=== PATIENT | female | born 1985 ===

== ENCOUNTER 2019-04-20 07:44 | Inpatient (IN) ==
[2019-04-20] MEDS: LACTATED RINGER'S 1,000 ML IV PRN ×4 (08:28→23:06)
[2019-04-20] MEDS ORDERED: OXYTOCIN 30 UNITS/500 ML BAG IV PRN (09:22)
--- NOTE | 2019-04-20 09:27 | Obstetrical Progress Note ---
Date of Service Patient had cervical P[place] last night heart rate is reactive baseline is 150s on cervix check today cervical internal losses at most 1 to 2 cm it is thic k -3 we will start Pitocin and estimated weight is 7 to 8 pounds group B strep negative April 20, 2019 Results & Data Vital Signs (Past 12 Hours) Vital Signs Temp Pulse Resp BP 04/20/19 09:00 83 112/58 L 04/20/19 08:45 36.5 C 83 20 112/58 L 04/20/19 08:21 37.2 C 20
--- NOTE | 2019-04-20 09:38 | History & Physical Report ---
Date of Service April 20, 2019 Assessment & Plan (1) History of stillbirth: close monitoring of mother and vital signs. (2) 40 weeks gestation of : Monitor vitals and labor status of mom. [temp of 37.2 at arrival, now 36.5] Frequent checks of heart monitor. Adjust pain plan with patient as labor progresses, consider epidural. History of Present Illness Primary Care Provider: with hx of full term demise/still at 40 weeks, currently 40 weeks confirmed via ultrasound on 10/20/18. Here for induction of labor for post-term . no complications with this . Has been attending OB appointments regularly. Currently taking iron and supplements. Contractions: none. Fluid or Blood loss: none. had de placed last night to advance cervical dilation, de fell out at 2:30 am. Movement: active Labs Blood type: O- Antibody screen: negative H.0 (02/01/19) Hct: 33.3 Wbc: -- Plt: 206 (10/20/18) Rubella: Immune VDRL/RPR: nonreactive Gonorrhea: negative Chlamydia: negative HIV: negative HBsAg: negative GBS: negative Glucose tolerance x2: negative x 2 Allergies Allergy/AdvReac Type Severity Reaction Status Date / Time No Known Allergies Allergy Unverified 04/19/19 19:44 Home Medications Home Medications Medication Instructions Recorded Confirmed Type ferrous sulfate 325 mg PO DAILY 04/19/19 04/20/19 History vit no.123-[id number] 1 tab PO DAILY 04/19/19 04/20/19 History [ Vitamin] Patient History Social History Preferred Language: Swahili Communication Ability: Effective 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 Feels it was due to hospital care. 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 >2 years ago in [facility] Review of Systems + fatigue; no fever and no chills no cough, no dyspnea and no wheezing + edema; no chest pain and no calf pain + abdominal pain; no nausea, no vomiting, no cramping, no constipation and no diarrhea/loose stools no dysuria and no difficulty urinating + back pain Physical Exam Constitutional: well developed and well nourished Respiratory: normal respiratory effort; no respiratory distress, no labored breathing and no cough Auscultation: no diminished lung sounds, no crackles, no rales, no rhonchi and no wheezes Cardiovascular: Rate/Rhythm: regular rate Heart Sounds: + murmur (2/6 systolic murmur that doesn't increase with valsalva maneuver) Extremities: normal capillary refill and + pedal edema; no calf tenderness Gastrointestinal (Abdomen): Inspection/Auscultation: + abdomen distended and normal bowel sounds Percussion/Palpation: abdomen nontender and no guarding Genitourinary: Speculum/Bimanual Exam: + uterus enlarged OB Exam Abdomen: + fundal height Fundus: + firm and + relation to umbilicus (high above umbilicus); not tender Cervical Exam per OB: Dilation - 1-2 cm Effacement - 50% Station - -2 Results & Data Vital Signs (Past 12 Hours) Vital Signs Temp Pulse Resp BP 04/20/19 09:00 83 112/58 L 04/20/19 08:45 36.5 C 83 20 112/58 L 04/20/19 08:21 37.2 C 20 Monitoring External Monitor Heart Monitor: Elevated baseline HR at 170 and flat appearing strip at initial presentation. Improved appearance after bolus of LR showing Moderate Variability, Accelerations, No Decels, baseline HR of 150. Tocodynamometer Contraction Frequency: not currently rekha. Starting pitocin drip to augment contractions Supervising Physician Co-Signing Physician Notes Resident Physician Supervision Note: I was present with [Name of resident] during the history and exam. I discussed the case with the resident and agree with the findings and plan as documented in the note. Any exceptions or clarifications are listed here: [None] Documented By: Jose Heredia MD, FACOG
[2019-04-20 09:56] LABS: Hematocrit (blood only) 34.5 % (37-47); Hemoglobin 11.4 g/dL (12.0-16.0); Mean Corpuscular Volume 86.9 fL (80-100); Mean Platelet Volume 10.5 fL (7.4-10.4); Platelet Count 142 K/uL (130-400); RDW Coefficient of Variation 16.5 % (11.5-14.5); RDW Standard Deviation 52.4 fL (36.4-46.3); Red Blood Count 3.97 M/uL (4.2-5.4); White Blood Count 11.53 K/uL (4.8-10.8)
[2019-04-20] MEDS: OXYTOCIN 30 UNITS/500 ML BAG IV PRN (10:01)
--- NOTE | 2019-04-20 14:17 | Obstetrical Progress Note ---
Date of Service Patient becoming more uncomfortable on Pitocin cervix is 2 cm I did confirm again with ultrasound of the baby is vertex in position as it is a high location of the heart rate monitoring externally. Offered the patient AROM she wishes epidural first and then will perform AROM heart rate category 1 April 20, 2019 Results & Data Vital Signs (Past 12 Hours) Vital Signs Temp Pulse Resp BP 04/20/19 13:20 72 20 111/72 04/20/19 12:21 36.7 C 80 16 110/55 L 04/20/19 11:04 36.7 C 79 20 107/56 L 04/20/19 10:51 79 110/55 L 04/20/19 10:35 85 115/60 04/20/19 10:20 71 125/69 04/20/19 10:04 80 16 114/59 L 04/20/19 09:00 83 112/58 L 04/20/19 08:45 36.5 C 83 20 112/58 L 04/20/19 08:21 37.2 C 20
[2019-04-20] MEDS ORDERED: BUPIVACAINE 0.25% 30 ML VIAL ONE (14:20)
[2019-04-20] MEDS ORDERED: fentaNYL citrate 100 MCG/2 ML VIAL ONE (14:21)
[2019-04-20] MEDS ORDERED: ePHEDrine sulfate 50 MG/ML AMP ONE (14:21)
[2019-04-20] MEDS ORDERED: fentaNYL 2MCG/ML ROPIV 1.25MG/ML 100 ML BAG EPI ONE (14:22)
--- NOTE | 2019-04-20 14:30 | Anesthesiology Consultation ---
Date of Service April 20, 2019 Assessment & Plan (1) Encounter for pre-operative examination: Chart Review Chart Review: Acceptable Risk for Labor Epidural History Height/Weight Height: 5 ft 3 in Weight: 89.074 kg Allergies Allergy/AdvReac Type Severity Reaction Status Date / Time No Known Allergies Allergy Unverified 04/19/19 19:44 Medications Home Medications Medication Instructions Recorded Confirmed Last Taken ferrous sulfate 325 mg PO DAILY 04/19/19 04/20/19 04/18/19 20:00 vit no.108-[id number] 1 tab PO DAILY 04/19/19 04/20/19 04/19/19 22:30 [ Vitamin] Active Medications Generic Name Dose Route Start Last Admin Trade Name Freq PRN Reason Stop Dose Admin Lactated Ringer's 1,000 mls @ 125 mls/hr 04/20/19 09:22 04/20/19 14:15 Lr IV 04/22/19 09:21 999 mls/hr .Q8H PRN Infusion L&D Protocol Protocol Oxytocin 30 units in 500 mls @ 17 mls/hr 04/20/19 09:39 04/20/19 14:10 Pitocin IV 04/22/19 09:38 1.02 units/hr .Q24H PRN 17 mls/hr Labor Induction/Augmentation Titration Protocol 1.02 UNITS/HR Past Medical History Medical History Anemia affecting Social History Smoking Status: Never smoker Do You Dip or Chew Tobacco: No Hx Alcohol Use: No Hx Substance Use: No substance use type: does not use Physical Exam Vital Signs Last Vital Signs Temp 36.7 C 04/20/19 12:21 Pulse 73 04/20/19 14:20 Resp 20 04/20/19 13:20 BP 94/58 L 04/20/19 14:20 Testing Laboratory Results 04/20/19 09:37
[2019-04-20] MEDS ORDERED: NALOXONE HCL 1 MG in SODIUM CHLORIDE 0.9% 1000ML 1,000 ML IV PRN (15:01)
[2019-04-20] MEDS ORDERED: NALOXONE HCL 0.4 MG/1 ML VIAL/CARP IV PRN (15:01)
[2019-04-20] MEDS ORDERED: ONDANSETRON INJ 2 MG/ML 2 ML VIAL IV PRN (15:01)
[2019-04-20] MEDS ORDERED: ePHEDrine sulfate 50 MG/ML AMP IV PRN (15:01)
[2019-04-20] MEDS ORDERED: Nursing to Pharmacy Communication ONE ×2 (18:57→20:10)
--- NOTE | 2019-04-20 21:15 | Obstetrical Progress Note ---
Date of Service Patient being induced at 39+ weeks for prior stillbirth in her prior she has made slow progress she is 4 cm 50% -2 station Pitocin is at 25 milliunit s we are prepared to go up to 28 milliunits her contraction pattern is not optimal at this stage so we are continuing to raise the Pitocin heart rate is category 1 April 20, 2019 Results & Data Vital Signs (Past 12 Hours) Vital Signs Temp Pulse Resp BP Pulse Ox 04/20/19 21:12 76 100 04/20/19 21:07 71 100 04/20/19 21:02 70 04/20/19 21:01 73 130/79 04/20/19 20:57 67 100 04/20/19 20:52 73 04/20/19 20:47 69 04/20/19 20:45 71 122/73 04/20/19 20:42 71 04/20/19 20:37 73 04/20/19 20:32 74 04/20/19 20:31 83 116/77 04/20/19 20:30 20 04/20/19 20:27 77 100 04/20/19 20:22 76 04/20/19 20:17 73 04/20/19 20:14 71 112/56 L 04/20/19 20:12 71 04/20/19 20:07 71 04/20/19 20:02 71 04/20/19 20:00 18 04/20/19 19:59 70 108/58 L 04/20/19 19:57 68 04/20/19 19:52 72 04/20/19 19:47 69 04/20/19 19:45 68 106/59 L 04/20/19 19:42 69 04/20/19 19:37 69 04/20/19 19:32 73 100 04/20/19 19:31 70 119/67 04/20/19 19:30 16 04/20/19 19:27 72 04/20/19 19:22 75 04/20/19 19:17 71 04/20/19 19:16 77 131/68 04/20/19 19:15 36.8 C 04/20/19 19:12 74 04/20/19 19:07 70 100 04/20/19 19:02 69 100 04/20/19 19:00 70 20 115/66 04/20/19 18:57 72 100 04/20/19 18:52 81 100 04/20/19 18:47 66 100 04/20/19 18:46 73 122/82 04/20/19 18:42 70 100 04/20/19 18:37 73 100 04/20/19 18:32 69 100 04/20/19 18:30 70 16 126/77 04/20/19 18:27 73 100 04/20/19 18:22 69 100 04/20/19 18:17 68 100 04/20/19 18:16 67 120/74 04/20/19 18:12 71 100 04/20/19 18:07 68 100 04/20/19 18:02 74 100 04/20/19 18:00 73 20 127/79 04/20/19 17:57 69 100 04/20/19 17:52 70 100 04/20/19 17:47 71 100 04/20/19 17:44 72 110/58 L 04/20/19 17:42 67 100 04/20/19 17:37 65 100 04/20/19 17:32 67 100 04/20/19 17:31 70 112/56 L 04/20/19 17:30 36.9 C 04/20/19 17:27 67 99 04/20/19 17:22 67 100 04/20/19 17:17 65 100 04/20/19 17:14 68 102/56 L 04/20/19 17:12 64 99 04/20/19 17:07 65 100 04/20/19 17:02 68 100 04/20/19 17:01 67 100/52 L 04/20/19 17:00 20 04/20/19 16:57 67 100 04/20/19 16:52 74 100 04/20/19 16:47 68 100 04/20/19 16:45 70 104/54 L 04/20/19 16:42 80 100 04/20/19 16:37 68 99 04/20/19 16:34 68 109/53 L 04/20/19 16:32 70 100 04/20/19 16:30 20 04/20/19 16:27 67 98 04/20/19 16:22 67 98 04/20/19 16:17 68 100 04/20/19 16:16 69 107/55 L 04/20/19 16:12 67 100 04/20/19 16:07 70 100 04/20/19 16:02 72 99 04/20/19 16:00 20 04/20/19 15:59 72 108/66 04/20/19 15:57 68 99 04/20/19 15:52 66 99 04/20/19 15:47 72 100 04/20/19 15:46 69 113/73 04/20/19 15:42 67 100 04/20/19 15:37 65 99 04/20/19 15:32 72 100 04/20/19 15:30 20 04/20/19 15:29 73 115/68 04/20/19 15:27 71 100 04/20/19 15:22 73 100 04/20/19 15:17 70 100 04/20/19 15:15 36.9 C 20 04/20/19 15:14 75 116/58 L 04/20/19 15:12 73 118/59 L 100 04/20/19 15:11 85 128/60 04/20/19 15:08 74 109/58 L 04/20/19 15:07 74 100 04/20/19 15:06 71 112/56 L 04/20/19 15:04 74 110/59 L 04/20/19 15:02 86 111/61 100 04/20/19 15:00 36.9 C 75 20 108/57 L 04/20/19 14:58 72 111/58 L 04/20/19 14:57 74 100 04/20/19 14:56 68 116/61 04/20/19 14:54 75 113/59 L 04/20/19 14:52 76 120/74 100 04/20/19 14:47 80 100 04/20/19 14:42 78 100 04/20/19 14:20 36.6 C 73 20 94/58 L 04/20/19 13:20 72 20 111/72 04/20/19 12:21 36.7 C 80 16 110/55 L 04/20/19 11:04 36.7 C 79 20 107/56 L 04/20/19 10:51 79 110/55 L 04/20/19 10:35 85 115/60 04/20/19 10:20 71 125/69 04/20/19 10:04 80 16 114/59 L
[2019-04-20] MEDS: fentaNYL 2MCG/ML ROPIV 1.25MG/ML 100 ML BAG EPI PRN (23:06)
[2019-04-21] MEDS: LACTATED RINGER'S 1,000 ML IV PRN ×2 (01:35→08:16)
--- NOTE | 2019-04-21 05:25 | Obstetrical Progress Note ---
Date of Service now 8cm, good progress April 21, 2019 Results & Data Vital Signs (Past 12 Hours) Vital Signs Temp Pulse Resp BP Pulse Ox 04/21/19 05:22 85 100 04/21/19 05:17 78 100 04/21/19 05:12 82 100 04/21/19 05:07 82 100 04/21/19 05:02 72 100 04/21/19 05:00 18 04/21/19 04:59 72 110/55 L 04/21/19 04:57 71 99 04/21/19 04:52 70 100 04/21/19 04:47 70 100 04/21/19 04:46 71 111/53 L 04/21/19 04:42 71 99 04/21/19 04:39 76 106/50 L 04/21/19 04:37 82 99 04/21/19 04:32 83 98 04/21/19 04:30 18 04/21/19 04:29 88 98/49 L 04/21/19 04:27 82 99 04/21/19 04:22 77 98 04/21/19 04:21 37.3 C 04/21/19 04:17 75 98 04/21/19 04:14 88 108/55 L 04/21/19 04:12 83 97 04/21/19 04:07 78 98 04/21/19 04:02 82 98 04/21/19 04:00 77 18 105/56 L 04/21/19 03:57 81 98 04/21/19 03:52 82 99 04/21/19 03:47 75 99 04/21/19 03:44 77 111/57 L 04/21/19 03:42 74 98 04/21/19 03:37 81 98 04/21/19 03:32 79 99 04/21/19 03:29 80 107/55 L 04/21/19 03:27 73 98 04/21/19 03:17 82 98 04/21/19 03:14 80 112/59 L 04/21/19 03:12 77 98 04/21/19 03:07 79 99 04/21/19 03:02 70 99 04/21/19 03:00 18 04/21/19 02:59 81 103/65 04/21/19 02:57 88 100 04/21/19 02:52 81 99 04/21/19 02:47 75 100 04/21/19 02:45 74 102/62 04/21/19 02:42 72 100 04/21/19 02:37 80 100 04/21/19 02:32 78 100 04/21/19 02:30 18 04/21/19 02:29 77 115/54 L 04/21/19 02:27 77 100 04/21/19 02:22 85 100 04/21/19 02:21 36.9 C 04/21/19 02:17 75 100 04/21/19 02:15 71 120/55 L 04/21/19 02:12 71 100 04/21/19 02:07 77 100 04/21/19 02:02 74 100 04/21/19 02:00 73 18 152/66 H 04/21/19 01:57 74 100 04/21/19 01:52 76 100 04/21/19 01:47 79 100 04/21/19 01:45 76 107/61 04/21/19 01:42 81 100 04/21/19 01:37 80 100 04/21/19 01:32 73 99 04/21/19 01:31 72 109/60 04/21/19 01:30 18 04/21/19 01:27 71 100 04/21/19 01:22 71 100 04/21/19 01:17 72 99 04/21/19 01:14 70 103/58 L 04/21/19 01:12 70 99 04/21/19 01:07 70 99 04/21/19 01:02 73 100 04/21/19 01:00 75 18 99/57 L 04/21/19 00:57 79 100 04/21/19 00:52 80 100 04/21/19 00:47 77 100 04/21/19 00:45 83 112/68 04/21/19 00:42 75 100 04/21/19 00:40 37.3 C 04/21/19 00:37 76 99 04/21/19 00:32 77 99 04/21/19 00:30 78 18 111/55 L 04/21/19 00:27 75 98 04/21/19 00:22 80 99 04/21/19 00:17 72 100 04/21/19 00:15 75 132/62 04/21/19 00:12 85 100 04/21/19 00:07 71 99 04/21/19 00:02 71 98 04/21/19 00:00 68 18 113/56 L 04/20/19 23:57 80 100 04/20/19 23:52 72 99 04/20/19 23:47 70 100 04/20/19 23:46 68 108/60 04/20/19 23:42 68 99 04/20/19 23:37 70 99 04/20/19 23:32 68 100 04/20/19 23:31 69 110/61 04/20/19 23:30 18 04/20/19 23:27 66 100 04/20/19 23:22 68 100 04/20/19 23:17 71 100 04/20/19 23:14 82 101/59 L 04/20/19 23:12 68 100 04/20/19 23:07 70 99 04/20/19 23:02 69 99 04/20/19 23:01 18 04/20/19 22:59 71 101/58 L 04/20/19 22:57 71 99 04/20/19 22:52 71 100 04/20/19 22:48 37.2 C 18 04/20/19 22:47 74 100 04/20/19 22:45 75 20 107/62 04/20/19 22:42 70 99 04/20/19 22:37 72 100 04/20/19 22:32 78 100 04/20/19 22:30 20 04/20/19 22:29 69 96/53 L 04/20/19 22:27 69 99 04/20/19 22:22 87 100 04/20/19 22:17 74 100 04/20/19 22:14 80 104/68 04/20/19 22:12 74 100 04/20/19 22:07 75 100 04/20/19 22:02 70 100 04/20/19 22:00 72 106/70 04/20/19 21:57 73 100 04/20/19 21:52 76 100 04/20/19 21:47 74 100 04/20/19 21:45 75 123/77 04/20/19 21:42 71 99 04/20/19 21:37 72 100 04/20/19 21:32 74 100 04/20/19 21:30 72 20 136/84 04/20/19 21:27 78 100 04/20/19 21:22 78 100 04/20/19 21:17 70 100 04/20/19 21:15 75 120/74 04/20/19 21:12 76 100 04/20/19 21:07 71 100 04/20/19 21:02 70 100 04/20/19 21:01 73 130/79 04/20/19 21:00 37.1 C 20 04/20/19 20:57 67 100 04/20/19 20:52 73 100 04/20/19 20:47 69 100 04/20/19 20:45 71 122/73 04/20/19 20:42 71 100 04/20/19 20:37 73 100 04/20/19 20:32 74 100 04/20/19 20:31 83 116/77 04/20/19 20:30 20 04/20/19 20:27 77 100 04/20/19 20:22 76 100 04/20/19 20:17 73 100 04/20/19 20:14 71 112/56 L 04/20/19 20:12 71 100 04/20/19 20:07 71 100 04/20/19 20:02 71 100 04/20/19 20:00 18 04/20/19 19:59 70 108/58 L 04/20/19 19:57 68 100 04/20/19 19:52 72 100 04/20/19 19:47 69 100 04/20/19 19:45 68 106/59 L 04/20/19 19:42 69 100 04/20/19 19:37 69 100 04/20/19 19:32 73 100 04/20/19 19:31 70 119/67 04/20/19 19:30 16 04/20/19 19:27 72 100 04/20/19 19:22 75 100 04/20/19 19:17 71 100 04/20/19 19:16 77 131/68 04/20/19 19:15 36.8 C 04/20/19 19:12 74 100 04/20/19 19:07 70 100 04/20/19 19:02 69 100 04/20/19 19:00 70 20 115/66 04/20/19 18:57 72 100 04/20/19 18:52 81 100 04/20/19 18:47 66 100 07/31/19 18:46 73 122/82 04/20/19 18:42 70 100 04/20/19 18:37 73 04/20/19 18:32 69 04/20/19 18:30 70 16 126/77 04/20/19 18:27 73 04/20/19 18:22 69 04/20/19 18:17 68 04/20/19 18:16 67 120/74 04/20/19 18:12 71 04/20/19 18:07 68 04/20/19 18:02 74 04/20/19 18:00 73 20 127/79 04/20/19 17:57 69 100 04/20/19 17:52 70 04/20/19 17:47 71 100 04/20/19 17:44 72 110/58 L 04/20/19 17:42 67 100 04/20/19 17:37 65 100 04/20/19 17:32 67 100 04/20/19 17:31 70 112/56 L 04/20/19 17:30 36.9 C 20 04/20/19 17:27 67 99 PG Care Time/CCT Total # of Minutes Spent Total Time Spent with Patient: Total time spent is greater than 50% in coordination of care (as documented) at patient's floor/unit and/or counseling patient:
[2019-04-21] MEDS: fentaNYL 2MCG/ML ROPIV 1.25MG/ML 100 ML BAG EPI PRN (05:39)
[2019-04-21] MEDS ORDERED: BUPIVACAINE 0.25% 30 ML VIAL ONE ×2 (07:49→09:13)
[2019-04-21] MEDS ORDERED: fentaNYL citrate 100 MCG/2 ML VIAL ONE ×2 (07:49→09:13)
[2019-04-21] MEDS: OXYTOCIN 30 UNITS/500 ML BAG IV PRN (08:14)
[2019-04-21] MEDS ORDERED: GENTAMICIN CONSULT ACTIVE PRN (08:45)
--- NOTE | 2019-04-21 09:01 | Obstetrical Progress Note ---
Date of Service April 21, 2019 Subjective I have assumed care of the patient. She has epidural - uncomfortable with contractions but does not feel urge to push. FHR 170-180s, moderate variability, +accelerations, occasional variable decelerations [place] Q 2-5 min Maternal temp 37.8 with tachycardia - no improvement with IV fluid bolus. Will start antibiotics for chorioamnionitis - ampicillin and gentamicin ordered. I discussed with patient and she is agreeable. Cervix exam: thick anterior lip of cervix, [address] Heredia attempted to reduce cervical lip earlier while patient was pushing, unsuccessful. Will attempt peanut ball and continued laboring down for now. Results & Data Vital Signs (Past 12 Hours) Vital Signs Temp Pulse Resp BP Pulse Ox 04/21/19 08:52 83 100 04/21/19 08:47 84 99 04/21/19 08:45 75 118/58 L 04/21/19 08:42 75 99 04/21/19 08:37 79 99 04/21/19 08:32 75 100 04/21/19 08:30 78 143/65 H 04/21/19 08:27 78 99 04/21/19 08:22 82 99 04/21/19 08:17 77 99 04/21/19 08:16 77 181/84 H 04/21/19 08:12 76 99 04/21/19 08:07 77 100 04/21/19 08:03 85 121/54 L 04/21/19 08:02 37.8 C H 84 20 99 04/21/19 07:57 81 100 04/21/19 07:52 89 100 04/21/19 07:47 85 100 04/21/19 07:46 81 111/51 L 04/21/19 07:42 86 100 04/21/19 07:37 82 97 04/21/19 07:32 87 100 04/21/19 07:30 81 116/59 L 04/21/19 07:27 82 100 04/21/19 07:22 84 100 04/21/19 07:17 84 100 04/21/19 07:16 37.4 C 20 04/21/19 07:15 81 112/50 L 04/21/19 07:12 81 99 04/21/19 07:07 82 100 04/21/19 07:02 83 100 04/21/19 07:00 82 18 131/57 L 04/21/19 06:57 90 100 04/21/19 06:52 79 100 04/21/19 06:47 76 100 04/21/19 06:45 74 125/74 04/21/19 06:42 76 100 04/21/19 06:37 73 100 04/21/19 06:32 77 99 04/21/19 06:30 18 04/21/19 06:29 76 120/65 04/21/19 06:27 73 100 04/21/19 06:22 78 100 04/21/19 06:17 78 100 04/21/19 06:16 82 117/65 04/21/19 06:12 77 100 04/21/19 06:07 80 100 04/21/19 06:02 36.8 C 80 100 04/21/19 06:01 77 122/71 04/21/19 06:00 18 04/21/19 05:57 85 99 04/21/19 05:52 79 99 04/21/19 05:47 76 100 04/21/19 05:45 75 131/77 04/21/19 05:42 84 100 04/21/19 05:37 81 99 04/21/19 05:32 85 100 04/21/19 05:30 82 18 130/62 04/21/19 05:27 80 100 04/21/19 05:22 85 100 04/21/19 05:17 78 100 04/21/19 05:12 82 100 04/21/19 05:07 82 100 04/21/19 05:02 72 100 04/21/19 05:00 18 04/21/19 04:59 72 110/55 L 04/21/19 04:57 71 99 04/21/19 04:52 70 100 04/21/19 04:47 70 100 04/21/19 04:46 71 111/53 L 04/21/19 04:42 71 99 04/21/19 04:39 76 106/50 L 04/21/19 04:37 82 99 04/21/19 04:32 83 98 04/21/19 04:30 18 04/21/19 04:29 88 98/49 L 04/21/19 04:27 82 99 04/21/19 04:22 77 98 04/21/19 04:21 37.3 C 04/21/19 04:17 75 98 04/21/19 04:14 88 108/55 L 04/21/19 04:12 83 97 04/21/19 04:07 78 98 04/21/19 04:02 82 98 04/21/19 04:00 77 18 105/56 L 04/21/19 03:57 81 98 04/21/19 03:52 82 99 04/21/19 03:47 75 99 04/21/19 03:44 77 111/57 L 04/21/19 03:42 74 98 04/21/19 03:37 81 98 04/21/19 03:32 79 99 04/21/19 03:29 80 107/55 L 04/21/19 03:27 73 98 04/21/19 03:17 82 98 04/21/19 03:14 80 112/59 L 04/21/19 03:12 77 98 04/21/19 03:07 79 99 04/21/19 03:02 70 99 04/21/19 03:00 18 04/21/19 02:59 81 103/65 04/21/19 02:57 88 100 04/21/19 02:52 81 99 04/21/19 02:47 75 100 04/21/19 02:45 74 102/62 04/21/19 02:42 72 100 04/21/19 02:37 80 100 04/21/19 02:32 78 100 04/21/19 02:30 18 04/21/19 02:29 77 115/54 L 04/21/19 02:27 77 100 04/21/19 02:22 85 100 04/21/19 02:21 36.9 C 04/21/19 02:17 75 100 04/21/19 02:15 71 120/55 L 04/21/19 02:12 71 100 04/21/19 02:07 77 100 04/21/19 02:02 74 100 04/21/19 02:00 73 18 152/66 H 04/21/19 01:57 74 100 04/21/19 01:52 76 100 04/21/19 01:47 79 100 04/21/19 01:45 76 107/61 04/21/19 01:42 81 100 04/21/19 01:37 80 100 04/21/19 01:32 73 99 04/21/19 01:31 72 109/60 04/21/19 01:30 18 04/21/19 01:27 71 100 04/21/19 01:22 71 100 04/21/19 01:17 72 99 04/21/19 01:14 70 103/58 L 04/21/19 01:12 70 99 04/21/19 01:07 70 99 04/21/19 01:02 73 100 04/21/19 01:00 75 18 99/57 L 04/21/19 00:57 79 100 04/21/19 00:52 80 100 04/21/19 00:47 77 100 04/21/19 00:45 83 112/68 04/21/19 00:42 75 100 04/21/19 00:40 37.3 C 04/21/19 00:37 76 99 04/21/19 00:32 77 99 04/21/19 00:30 78 18 111/55 L 04/21/19 00:27 75 98 04/21/19 00:22 80 99 04/21/19 00:17 72 100 04/21/19 00:15 75 132/62 04/21/19 00:12 85 100 04/21/19 00:07 71 99 04/21/19 00:02 71 98 04/21/19 00:00 68 18 113/56 L 04/20/19 23:57 80 100 04/20/19 23:52 72 99 04/20/19 23:47 70 100 04/20/19 23:46 68 108/60 04/20/19 23:42 68 99 04/20/19 23:37 70 99 04/20/19 23:32 68 100 04/20/19 23:31 69 110/61 04/20/19 23:30 18 04/20/19 23:27 66 100 04/20/19 23:22 68 100 04/20/19 23:17 71 100 04/20/19 23:14 82 101/59 L 04/20/19 23:12 68 100 04/20/19 23:07 70 99 04/20/19 23:02 69 99 04/20/19 23:01 18 04/20/19 22:59 71 101/58 L 04/20/19 22:57 71 99 04/20/19 22:52 71 100 04/20/19 22:48 37.2 C 18 04/20/19 22:47 74 100 04/20/19 22:45 75 20 107/62 04/20/19 22:42 70 99 04/20/19 22:37 72 100 04/20/19 22:32 78 100 04/20/19 22:30 20 04/20/19 22:29 69 96/53 L 04/20/19 22:27 69 99 04/20/19 22:22 87 100 04/20/19 22:17 74 100 04/20/19 22:14 80 104/68 04/20/19 22:12 74 100 04/20/19 22:07 75 100 04/20/19 22:02 70 100 04/20/19 22:00 72 106/70 04/20/19 21:57 73 100 04/20/19 21:52 76 100 04/20/19 21:47 74 100 04/20/19 21:45 75 123/77 04/20/19 21:42 71 99 04/20/19 21:37 72 100 04/20/19 21:32 74 100 04/20/19 21:30 72 20 136/84 04/20/19 21:27 78 100 04/20/19 21:22 78 100 04/20/19 21:17 70 100 04/20/19 21:15 75 120/74 04/20/19 21:12 76 100 04/20/19 21:07 71 100 04/20/19 21:02 70 100 04/20/19 21:01 73 130/79 04/20/19 21:00 37.1 C 20 PG Care Time/CCT Total # of Minutes Spent Total Time Spent with Patient: Total time spent is greater than 50% in coordination of care (as documented) at patient's floor/unit and/or counseling p atient:
[2019-04-21] MEDS ORDERED: ePHEDrine sulfate 50 MG/ML AMP ONE (09:13)
[2019-04-21] MEDS ORDERED: fentaNYL 2MCG/ML ROPIV 1.25MG/ML 100 ML BAG EPI ONE (09:14)
[2019-04-21] MEDS ORDERED: GENTAMICIN SULFATE 340 MG in DEXTROSE 5% 100 ML IV SCH (10:00)
[2019-04-21] MEDS: AMPICILLIN 2,000 MG in SODIUM CHLOR 0.9% AD-VAN 100 ML IV SCH ×3 (10:00→20:56)
--- NOTE | 2019-04-21 10:04 | Pharmacy Report ---
Pharmacy Abx Initial Consult - Date of Service April 21, 2019 - Pharmacy Dosing Scope Date of Consult: 04/21/19 Consultation requested by: Dr. Daniels Pharmacy is consulted to initiate Gentamicin IV dosing therapy, order appropriate labs and adjust drug dose/frequency. Pt also ordered Ampicillin IV. - Subjective The patient is a 34 year old F admitted on 04/20/19 07:44. - Objective Height: 5 ft 3 in Weight: 89.074 kg Vital Signs (Past 12hrs): Vital Signs Temp Pulse Resp BP Pulse Ox 04/21/19 09:52 82 136/62 99 04/21/19 09:50 97 H 131/59 L 04/21/19 09:48 90 126/65 04/21/19 09:47 98 H 99 04/21/19 09:45 105 H 133/87 04/21/19 09:42 84 99 04/21/19 09:40 82 141/81 H 04/21/19 09:37 84 100 04/21/19 09:32 85 99 04/21/19 09:30 82 151/85 H 04/21/19 09:27 85 100 04/21/19 09:22 85 100 04/21/19 09:17 79 100 04/21/19 09:12 90 100 04/21/19 09:07 89 100 04/21/19 09:02 92 H 100 04/21/19 09:00 37.4 C 81 20 144/94 H 04/21/19 08:57 75 100 04/21/19 08:52 83 100 04/21/19 08:47 84 99 04/21/19 08:45 75 118/58 L 04/21/19 08:42 75 99 04/21/19 08:37 79 99 04/21/19 08:32 75 100 04/21/19 08:30 78 143/65 H 04/21/19 08:27 78 99 04/21/19 08:22 82 99 04/21/19 08:17 77 99 04/21/19 08:16 77 181/84 H 04/21/19 08:12 76 99 04/21/19 08:07 77 100 04/21/19 08:03 85 121/54 L 04/21/19 08:02 37.8 C H 84 20 99 04/21/19 07:57 81 100 04/21/19 07:52 89 100 04/21/19 07:47 85 100 04/21/19 07:46 81 111/51 L 04/21/19 07:42 86 100 04/21/19 07:37 82 97 04/21/19 07:32 87 100 04/21/19 07:30 81 116/59 L 04/21/19 07:27 82 100 04/21/19 07:22 84 100 04/21/19 07:17 84 100 04/21/19 07:16 37.4 C 20 04/21/19 07:15 81 112/50 L 04/21/19 07:12 81 99 04/21/19 07:07 82 100 04/21/19 07:02 83 100 04/21/19 07:00 82 18 131/57 L 04/21/19 06:57 90 100 04/21/19 06:52 79 100 04/21/19 06:47 76 100 04/21/19 06:45 74 125/74 04/21/19 06:42 76 100 04/21/19 06:37 73 100 04/21/19 06:32 77 99 04/21/19 06:30 18 04/21/19 06:29 76 120/65 04/21/19 06:27 73 100 04/21/19 06:22 78 100 04/21/19 06:17 78 100 04/21/19 06:16 82 117/65 04/21/19 06:12 77 100 04/21/19 06:07 80 100 04/21/19 06:02 36.8 C 80 100 04/21/19 06:01 77 122/71 04/21/19 06:00 18 04/21/19 05:57 85 99 04/21/19 05:52 79 99 04/21/19 05:47 76 100 04/21/19 05:45 75 131/77 04/21/19 05:42 84 100 04/21/19 05:37 81 99 04/21/19 05:32 85 100 04/21/19 05:30 82 18 130/62 04/21/19 05:27 80 100 04/21/19 05:22 85 100 04/21/19 05:17 78 100 04/21/19 05:12 82 100 04/21/19 05:07 82 100 04/21/19 05:02 72 100 04/21/19 05:00 18 04/21/19 04:59 72 110/55 L 04/21/19 04:57 71 99 04/21/19 04:52 70 100 04/21/19 04:47 70 100 04/21/19 04:46 71 111/53 L 04/21/19 04:42 71 99 04/21/19 04:39 76 106/50 L 04/21/19 04:37 82 99 04/21/19 04:32 83 98 04/21/19 04:30 18 04/21/19 04:29 88 98/49 L 04/21/19 04:27 82 99 04/21/19 04:22 77 98 04/21/19 04:21 37.3 C 04/21/19 04:17 75 98 04/21/19 04:14 88 108/55 L 04/21/19 04:12 83 97 04/21/19 04:07 78 98 04/21/19 04:02 82 98 04/21/19 04:00 77 18 105/56 L 04/21/19 03:57 81 98 04/21/19 03:52 82 99 04/21/19 03:47 75 99 04/21/19 03:44 77 111/57 L 04/21/19 03:42 74 98 04/21/19 03:37 81 98 04/21/19 03:32 79 99 04/21/19 03:29 80 107/55 L 04/21/19 03:27 73 98 04/21/19 03:17 82 98 04/21/19 03:14 80 112/59 L 04/21/19 03:12 77 98 04/21/19 03:07 79 99 04/21/19 03:02 70 99 04/21/19 03:00 18 04/21/19 02:59 81 103/65 04/21/19 02:57 88 100 04/21/19 02:52 81 99 04/21/19 02:47 75 100 04/21/19 02:45 74 102/62 04/21/19 02:42 72 100 04/21/19 02:37 80 100 04/21/19 02:32 78 100 04/21/19 02:30 18 04/21/19 02:29 77 115/54 L 04/21/19 02:27 77 100 04/21/19 02:22 85 100 04/21/19 02:21 36.9 C 04/21/19 02:17 75 100 04/21/19 02:15 71 120/55 L 04/21/19 02:12 71 100 04/21/19 02:07 77 100 04/21/19 02:02 74 100 04/21/19 02:00 73 18 152/66 H 04/21/19 01:57 74 100 04/21/19 01:52 76 100 04/21/19 01:47 79 100 04/21/19 01:45 76 107/61 04/21/19 01:42 81 100 04/21/19 01:37 80 100 04/21/19 01:32 73 99 04/21/19 01:31 72 109/60 04/21/19 01:30 18 04/21/19 01:27 71 100 04/21/19 01:22 71 100 04/21/19 01:17 72 99 04/21/19 01:14 70 103/58 L 04/21/19 01:12 70 99 04/21/19 01:07 70 99 04/21/19 01:02 73 100 04/21/19 01:00 75 18 99/57 L 04/21/19 00:57 79 100 04/21/19 00:52 80 100 04/21/19 00:47 77 100 04/21/19 00:45 83 112/68 04/21/19 00:42 75 100 04/21/19 00:40 37.3 C 04/21/19 00:37 76 99 04/21/19 00:32 77 99 04/21/19 00:30 78 18 111/55 L 04/21/19 00:27 75 98 04/21/19 00:22 80 99 04/21/19 00:17 72 100 04/21/19 00:15 75 132/62 04/21/19 00:12 85 100 04/21/19 00:07 71 99 04/21/19 00:02 71 98 04/21/19 00:00 68 18 113/56 L 04/20/19 23:57 80 100 04/20/19 23:52 72 99 04/20/19 23:47 70 100 04/20/19 23:46 68 108/60 07/31/19 23:42 68 99 04/20/19 23:37 70 99 04/20/19 23:32 68 100 04/20/19 23:31 69 110/61 04/20/19 23:30 18 04/20/19 23:27 66 100 04/20/19 23:22 68 100 04/20/19 23:17 71 100 04/20/19 23:14 82 101/59 L 04/20/19 23:12 68 100 04/20/19 23:07 70 99 04/20/19 23:02 69 99 04/20/19 23:01 18 04/20/19 22:59 71 101/58 L 04/20/19 22:57 71 99 04/20/19 22:52 71 100 04/20/19 22:48 37.2 C 18 04/20/19 22:47 74 100 04/20/19 22:45 75 20 107/62 04/20/19 22:42 70 99 04/20/19 22:37 72 100 04/20/19 22:32 78 100 04/20/19 22:30 20 04/20/19 22:29 69 96/53 L 04/20/19 22:27 69 99 04/20/19 22:22 87 100 04/20/19 22:17 74 100 04/20/19 22:14 80 104/68 04/20/19 22:12 74 100 04/20/19 22:07 75 100 04/20/19 22:02 70 100 04/20/19 22:00 72 106/70 04/20/19 21:57 73 100 Lab Results (24hrs): Laboratory Tests (24 Hours) 04/20/19 09:37 WBC 11.53 H - Assessment & Plan Assessment 34 year old F initiated on IV ampicillin + gentamicin for chorioamnionitis. Plan Intrapartum regimen dosing for Ampicillin + Gentamicin: Ampicillin 2g IV Q6hrs PLUS Gentamicin 5mg/kg IV once daily (use adjusted body weight for patients weighing > 120% of ideal body weight) * A single daily gentamicin dose is equally or more effective and more convenient than thrice-daily dosing and safe when used intrapartum or . It does not result in toxic maternal levels (peak 18.2 microg/mL and <2 microg/mL by 10 hours) and results in appropriate serum levels (peak 6.9 microg/mL); levels are lower with standard dosing (1.5 mg/kg every eight hours: level 2.9 microg/mL) [uptodate] * Routine gentamicin monitoring IS needed with [facility] * No Scr in EMR; pt w/o hx of CKD therefore will give first dose now and check Scr with next lab draw * Typically random level ordered for 6-14 hours after the start of the infusion to ensure dosing interval is appropriate. * Gentamicin random level + Scr tonight at [facility] will continue to follow and will adjust dose/frequency as necessary. Thank you.
[2019-04-21] MEDS ORDERED: fentaNYL 2MCG/ML ROPIV 1.25MG/ML 100 ML BAG EPI PRN (10:10)
[2019-04-21] MEDS ORDERED: ePHEDrine sulfate 50 MG/ML AMP IV PRN (10:10)
[2019-04-21] MEDS ORDERED: NALOXONE HCL 1 MG in SODIUM CHLORIDE 0.9% 1000ML 1,000 ML IV PRN (10:10)
[2019-04-21] MEDS ORDERED: NALBUPHINE HCL INJ 10 MG/ML AMP IV PRN (10:10)
[2019-04-21] MEDS ORDERED: DiphenhydrAMINE HCL 50 MG/ML VIAL IV PRN (10:10)
[2019-04-21] MEDS ORDERED: NALOXONE HCL 0.4 MG/1 ML VIAL/CARP IV PRN (10:10)
--- NOTE | 2019-04-21 11:13 | Delivery Summary ---
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 Apgars: 6/9. Weight pending, please see nursery records. Estimated blood loss: 300ml Description of delivery: The patient progressed to complete with epidural anesthesia. She then began to push. She spontaneously vaginally delivered a viable male from the cephalic presentation. The head delivered in RICK position. Nuchal cord x 1 was easily reduced. The anterior shoulder delivered, followed by the posterior shoulder, followed by the body. The mouth and nose were bulb suctioned, and the baby was placed on mother's abdomen. Cord was doubly clamped and cut, and the baby was handed off to the waiting pediatrics team. A spontaneous cry was heard. A segment was retained for cord gases. Cord blood was obtained. The placenta was delivered spontaneously intact with a 3- vessel cord, marginal insertion of cord. The uterus and vagina were swept of clots and debris. IV pitocin was given. The uterus became firm. The cervix, vagina, and perineum were inspected and no lacerations were noted. Excellent hemostasis was observed. The mother and baby are recovering in stable and good condition in the room. Sponge and instrument counts were correct x 2. Marisa Daniels [place] [facility] [place]
[2019-04-21] MEDS ORDERED: IBUPROFEN 600 MG TAB PO ONE (11:14)
--- NOTE | 2019-04-21 12:14 | Anesthesia Procedure Note ---
Date of Service April 21, 2019 Anesthesia Post Epidural Note Vital Signs Vital Signs: Temp Pulse Resp BP Pulse Ox 37.8 C H 66 20 124/63 96 04/21/19 11:04 04/21/19 12:04 04/21/19 11:49 04/21/19 12:04 04/21/19 11:02 Pain Intensity Abdomen: Pain Intensity: 2 Notes Mental Status: alert / awake / arousable Patient Amnestic to Procedure: Yes Nausea / Vomiting: adequately controlled Pain: adequately controlled Airway Patency, RR, SpO2: stable & adequate BP & HR: stable & adequate Hydration State: stable & adequate Anesthetic Complications: no major complications apparent and Pt Satisfied with anesthetic care
[2019-04-21] MEDS ORDERED: HYDROCORTISONE ACETATE 25 MG SUPP PR PRN (12:31)
[2019-04-21] MEDS ORDERED: BENZOCAINE 20% AER SPR 82.5 GM CAN EXT PRN (12:31)
[2019-04-21] MEDS ORDERED: OXYCODONE/ACETAMINOPHEN 5mg/325mg TAB PO PRN (12:31)
[2019-04-21] MEDS ORDERED: DIPHTHERIA/TETANUS/PERTUSSIS 0.5 ML SYR/VIAL IM ONE (12:31)
[2019-04-21] MEDS ORDERED: BISACODYL 10 MG SUPP PR PRN (12:31)
[2019-04-21] MEDS ORDERED: OXYTOCIN 30 UNITS/500 ML BAG IV PRN (12:31)
[2019-04-21] MEDS ORDERED: ACETAMINOPHEN 325 MG TAB PO PRN (12:31)
[2019-04-21] MEDS ORDERED: SUPERCREAM 0.870% 15 GM JAR EXT PRN (12:31)
[2019-04-21] MEDS: IBUPROFEN 600 MG TAB PO PRN (20:14)
[2019-04-21 20:36] LABS: Creatinine Clr Calc Pharmacy 106.2 ml/min; Est GFR (African American) 113.2; Est GFR (Non-African American) 97.7
[2019-04-21] MEDS: DOCUSATE SODIUM 100 MG CAP PO SCH (21:00)
[2019-04-22] MEDS: IBUPROFEN 600 MG TAB PO PRN ×3 (00:18→21:27)
[2019-04-22] MEDS: AMPICILLIN 2,000 MG in SODIUM CHLOR 0.9% AD-VAN 100 ML IV SCH (02:55)
[2019-04-22 07:16] LABS: Hematocrit (blood only) 31.2 % (37-47); Hemoglobin 10.3 g/dL (12.0-16.0); Mean Corpuscular Volume 86.4 fL (80-100); Mean Platelet Volume 9.9 fL (7.4-10.4); Platelet Count 123 K/uL (130-400); RDW Coefficient of Variation 16.9 % (11.5-14.5); RDW Standard Deviation 53.8 fL (36.4-46.3); Red Blood Count 3.61 M/uL (4.2-5.4); White Blood Count 17.18 K/uL (4.8-10.8)
--- NOTE | 2019-04-22 07:20 | Obstetrical Progress Note ---
Date of Service <Michelle Sanabria MD - Last Filed: 04/22/19 07:27> April 22, 2019 Assessment & Plan <Michelle Sanabria MD - Last Filed: 04/22/19 07:27> (1) History of stillbirth: close monitoring of mother and vital signs. (2) 40 weeks gestation of : Subjective <Michelle Sanabria MD - Last Filed: 04/22/19 07:27> Ambulation: ambulating normally Voiding: no voiding problems Passing Gas:: Yes Diet Tolerance:: regular diet Lochia:: Small Feeding Type:: breast feeding Current Pain Level(1-10): 0 PPD2, doing well No UTi sx with voiding, has stooled. Pain was 7/10, controlled with pain medication. Ambulating Constitutional: + fatigue; no fever and no chills No shortness of breath Cardiovascular: + edema; no chest pain and no calf pain Breast: no breast pain Gastrointestinal: + abdominal pain; no nausea, no vomiting, no cramping, no constipation and no diarrhea/loose stools Genitourinary (female): no dysuria and no difficulty urinating Musculoskeletal: + back pain Physical Exam <Michelle Sanabria MD - Last Filed: 04/22/19 07:27> Constitutional well developed and well nourished Respiratory normal respiratory effort; no respiratory distress, no labored breathing and no cough Auscultation: no diminished lung sounds, no crackles, no rales, no rhonchi and no wheezes Cardiovascular Rate/Rhythm: regular rate Extremities: normal capillary refill and + pedal edema; no calf tenderness Gastrointestinal (Abdomen) Inspection/Auscultation: + abdomen distended and normal bowel sounds Percussion/Palpation: abdomen nontender and no guarding Results & Data <Michelle Sanabria MD - Last Filed: 04/22/19 07:27> Vital Signs (Past 12 Hours) Vital Signs Temp Pulse Resp BP Pulse Ox 04/22/19 03:10 36.5 C 71 16 114/77 100 04/22/19 00:05 36.4 C L 79 17 115/74 99 04/21/19 20:10 36.6 C 82 18 111/70 <Marisa Daniels DO - Last Filed: 04/22/19 07:59> Co-Signing Physician Notes Resident Physician Supervision Note: I interviewed and examined the patient. Discussed with Dr. Sanabria and agree with findings and plan as documented in the note. Any exceptions or clarifications are listed here: PPD#1 doing well. Continue routine care. Documented By: Marisa Daniels, DO
[2019-04-22] MEDS ORDERED: PRENATAL VITAMIN 1 TAB PO SCH (08:00)
[2019-04-22] MEDS: DOCUSATE SODIUM 100 MG CAP PO SCH ×2 (08:42→21:18)
[2019-04-22] MEDS: PRENATAL VITAMIN 1 TAB PO SCH (08:42)
[2019-04-22] MEDS: FERROUS SULFATE 325 MG TAB PO SCH (08:42)
[2019-04-22] MEDS ORDERED: BISACODYL 5 MG TABEC PO SCH (20:00)
[2019-04-23 06:38] LABS: Hematocrit (blood only) 32.8 % (37-47); Hemoglobin 10.7 g/dL (12.0-16.0)
[2019-04-23] MEDS: DOCUSATE SODIUM 100 MG CAP PO SCH (07:51)
[2019-04-23] MEDS: PRENATAL VITAMIN 1 TAB PO SCH (07:51)
[2019-04-23] MEDS: FERROUS SULFATE 325 MG TAB PO SCH (07:51)
--- NOTE | 2019-04-23 08:27 | Obstetrical Progress Note ---
Date of Service <Michelle Sanabria MD - Last Filed: 04/23/19 09:12> April 23, 2019 Assessment & Plan <Michelle Sanabria MD - Last Filed: 04/23/19 09:12> (1) 40 weeks gestation of : Subjective <Michelle Sanabria MD - Last Filed: 04/23/19 09:12> Voiding: no voiding problems Diet Tolerance:: regular diet Lochia:: Small Feeding Type:: breast feeding Current Pain Level(1-10): 0 Constitutional: no fever and no chills Respiratory: no cough and no dyspnea Cardiovascular: + edema (reduced from previous); no chest pain and no calf pain Breast: no breast pain Gastrointestinal: + abdominal pain; no nausea, no vomiting, no cramping, no constipation and no diarrhea/loose stools Genitourinary (female): no dysuria Musculoskeletal: + back pain Neurologic: no headache(s) Physical Exam <Michelle Sanabria MD - Last Filed: 04/23/19 09:12> Constitutional well developed and well nourished Respiratory normal respiratory effort; no respiratory distress, no labored breathing and no cough Auscultation: no diminished lung sounds, no crackles, no rales, no rhonchi and no wheezes Cardiovascular Rate/Rhythm: regular rate and regular rhythm Extremities: normal capillary refill, + pedal edema and + edema (1+ midcalf nonpitting edema); no calf tenderness Gastrointestinal (Abdomen) Inspection/Auscultation: + abdomen distended and normal bowel sounds Percussion/Palpation: + abdomen tender (mildly tender to palpation); no guarding Genitourinary Speculum/Bimanual Exam: + uterus enlarged OB Exam Abdomen: + fundal height Fundus: + firm, + tender and + relation to umbilicus (~2 inches below umbilicus) Results & Data <Michelle Sanabria MD - Last Filed: 04/23/19 09:12> Vital Signs (Past 12 Hours) Vital Signs Temp Pulse Resp BP Pulse Ox 04/23/19 03:15 37.0 C 73 16 123/78 98 04/23/19 00:50 36.6 C 73 14 128/85 100 <Deya Ramesh MD, FACOG - Last Filed: 08/03/19 09:12> Co-Signing Physician Notes Resident Physician Supervision Note: I interviewed and examined the patient. Discussed with Dr. Sanabria and agree with findings and plan as documented in the note. Any exceptions or clarifications are listed here: Patient ready for discharge. appropriate instructions both written & verbal given to patient . follow up in 6 weeks. Documented By: Deya Ramesh MD, FACOG
--- NOTE | 2019-04-23 08:47 | Obstetrical Progress Note ---
Date of Service April 23, 2019 Assessment & Plan (1) Encounter for care and examination after delivery: continue current care plan Results & Data Vital Signs (Past 12 Hours) Vital Signs Temp Pulse Resp BP Pulse Ox 04/23/19 03:15 98.6 F 73 16 123/78 98 04/23/19 00:50 97.9 F 73 14 128/85 100
[2019-04-23] MEDS: IBUPROFEN 600 MG TAB PO PRN (14:28)
== END 2019-04-23 16:55 | disposition home or self-care (01) | DRG 805 ==
LOC: 4S1 07:44 → 4S2 04-21 14:10